=== PATIENT | male | born 1990 | race Caucasian/White ===

== ENCOUNTER 2023-10-17 05:36 | Emergency (ER) | payer BC, SELFPAY ==
[2023-10-17 05:41] VITALS: BP 168/111
[2023-10-17 05:49] VITALS: BP 160/102
--- NOTE | 2023-10-17 06:19 | ED.GENMED ---
History of Present Illness
General
Chief Complaint: Blood Pressure Problem
Source: patient
Time Seen by Provider: 10/17/23 06:00
History of Present Illness
History of Present Illness:
33-year-old male presents emergency room complaining of elevated blood pressure. Patient states over the past couple days has been feeling foggy and has had a headache. He denies any focal weakness numbness or tingling. Denies any chest pain or
shortness of breath. Patient has a history of hypertension for which he takes losartan 75 mg. Patient states he has been taking his medication. He does not carefully monitor his diet.
Phy Exam
Physical Exam
Physical Exam:
General: Awake, Alert, Oriented X3. No acute distress.
Vitals: unremarkable
Head: Atraumatic
Eyes: Pupils equal, EOMI
Throat: Airway intact, no exudates
Neck: Trachea midline
Lungs: Clear and equal b/l
Heart: Regular rate, no murmurs
Abd: Soft, Nontender, No pulsatile mass
Neuro: Nonfocal
Skin: Warm, dry, no rash
Extremities: pulses equal b/l, no edema
Course
Orders/Labs/Results
Orders:
Orders
10/17/23 06:18
Electrocardiogram (*1) Urgent
Reason for Study: Palpitations
Urinalysis Reflex To Culture Urgent
10/17/23 06:19
EKG- Treatment ONCE
10/17/23 06:23
Basic Metabolic Panel Urgent
10/17/23 06:29
Complete Blood Count/With Diff Urgent
10/17/23 07:20
Hydrochlorothiazide [[place]] 12.5 mg PO NOW ONE
Abnormal Lab Results
10/17/23 10/17/23
06:23 06:29
MPV 10.6 H fL
(7.4-10.4)
Monocytes % 9.6 H %
(1.7-9.3)
Glucose 108 H mg/dl
(70-99)
10/17/23 06:29
10/17/23 06:23
Vital Signs
Initial and Last Documented VS:
Initial Vital Signs
Temp Pulse Resp BP Pulse Ox
98.2 F 78 20 168/111 99
10/17/23 05:41 10/17/23 05:41 10/17/23 05:41 10/17/23 05:41 10/17/23 05:41
Last Documented Vital Signs
Temp Pulse Resp BP Pulse Ox
98.2 F 78 20 154/104 99
10/17/23 05:41 10/17/23 05:41 10/17/23 05:41 10/17/23 07:14 10/17/23 05:41
MDM/Problems Addressed
Differential Diagnosis Includes:
Uncontrolled hypertension, renal insufficiency,
MDM/Problems Addressed:
Patient presents with elevated blood pressure. He is somewhat symptomatic but has a nonfocal neuroexam and appears comfortable. Blood pressure monitored here in the emergency room and it is in the 150s to 160 range primarily. Labs are
unremarkable. Patient stable for discharge we will start him on hydrochlorothiazide.
*Pulse Oximetry
Patient hypoxic: no
*EKG
Interpreted by ED Provider?: Yes
Interpretation: normal
Heart Rate: 75
Rhythm: sinus
[place]: normal axis
Interval: normal interval
QRS Pattern: normal QRS
Ischemia: no ischemia
*Web Worker Interpretation
Rate: normal
Interpretation: normal
Rhythm: sinus
*Critical Care Note
Total Time (30-74mins, 75-104mins- exclusive of procedures): Not Applicable
ED Attending Note
-
Portions of this chart may have been created with voice recognition software.� Occasional wrong word or��sound alike� substitutions may have occurred due to the inherent limitations of voice recognition software.
Discharge Plan
Departure
Patient Disposition: Home (Routine Discharge)
Date of Disposition: 10/17/23
Time of Disposition: 07:20
Patient with high blood pressure during this ER visit?: Yes
Condition: Good
Discharge Problem:
Hypertension
Instructions: High Blood Pressure (DC)
Prescriptions:
New
hydrochlorothiazide 12.5 mg tablet
12.5 mg PO DAILY Qty: 30 0RF
No Action
losartan
75 mg PO DAILY
Referrals:
Nathan Burgess DO [Family Provider] -
Interventions
Interventions:
*Risk Screen - Suicide Last Done: 10/17/23 05:41
*General Assessment Last Done: 10/17/23 05:41
*Neglect/Abuse Screening Last Done: 10/17/23 05:41
ED- Fall Risk Assessment Last Done: 10/17/23 05:41
*ED COVID-19 Vaccine History Last Done: 10/17/23 05:41
ED- Cardiac Assessment Last Done: 10/17/23 07:13
ED- Neurological Assessment Last Done: 10/17/23 07:13
ED- Pulmonary Assessment Last Done: 10/17/23 07:13
Discharge Date and Time
Print Language: POLISH
[2023-10-17 06:22] VITALS: BMI 38.8
[2023-10-17 06:51] LABS: % Basophils 0.6 % (0-2); % Eosinophils 2.1 % (0-6); % Immature Granulocytes 0.2 % (0-0.5); % Monocytes 9.6 % (1.7-9.3); % Neutrophils 56.5 % (42.2-75.2); Absolute Eosinophils 0.1 10^3/uL (0-0.7); Absolute Lymphocytes 1.5 10^3/uL (1.2-3.4); Absolute Monocytes 0.5 10^3/uL (0.1-0.6); Absolute Neutrophils 2.7 10^3/uL (1.4-6.5); Hematocrit 43.8 % (39.0-52.0); Hemoglobin 15.4 g/dL (13.0-18.0); Mean Corp Hgb Conc. 35.2 g/dL (33.0-37.0); Mean Corpuscular Hgb 30.5 pg (27.0-31.0); Mean Corpuscular Volume 86.7 fL (80.0-94.0); Mean Platelet Volume 10.6 fL (7.4-10.4); Nucleated Red Blood Cells % 0 % (-); Platelet Count 196 10^3/uL (130-400); Red Blood Cell Count 5.05 10^6/uL (4.70-6.10); White Blood Cell Count 4.8 10^3/uL (4.8-10.8)
[2023-10-17 06:59] LABS: Blood Urea Nitrogen 18 mg/dl (9-20); Calcium 9.5 mg/dl (8.4-10.2); Carbon Dioxide 28 mmol/L (22-30); Chloride 103 mmol/L (98-107); Estimated Creatinine Clearance > 125 ml/min; Glucose 108 mg/dl (70-99); Potassium 4.5 mmol/L (3.5-5.1); Sodium 136 mmol/L (135-145); eGFR > 60.00
[2023-10-17 07:14] VITALS: BP 154/104
[2023-10-17] MEDS: ORETIC 12.5 MG PO (07:49)
== END 2023-10-17 07:50 | disposition home or self-care (01) ==
LOC: EMR 05:36
PROVIDERS: EMERGENCY PHYSICIAN Emergency Medicine; FAMILY PHYSICIAN Family Medicine
DX: I10 Essential (primary) hypertension (principal); R51.9 Headache, unspecified
CPT/HCPCS: 99283; 80048; 85025; 93005

== ENCOUNTER 2024-04-02 03:25 | Emergency (ER) | payer BC, SELFPAY ==
[2024-04-02 03:46] VITALS: BP 185/125
[2024-04-02 04:38] LABS: % Basophils 0.6 % (0-2); % Eosinophils 2.7 % (0-6); % Immature Granulocytes 0.4 % (0-0.5); % Lymphocytes 27.7 % (20.5-51.1); % Monocytes 7.2 % (1.7-9.3); % Neutrophils 61.4 % (42.2-75.2); Absolute Eosinophils 0.2 10^3/uL (0-0.7); Absolute Monocytes 0.5 10^3/uL (0.1-0.6); Absolute Neutrophils 4.4 10^3/uL (1.4-6.5); Hematocrit 44.6 % (39.0-52.0); Hemoglobin 15.3 g/dL (13.0-18.0); Mean Corp Hgb Conc. 34.3 g/dL (33.0-37.0); Mean Corpuscular Hgb 29.4 pg (27.0-31.0); Mean Corpuscular Volume 85.8 fL (80.0-94.0); Mean Platelet Volume 10.2 fL (7.4-10.4); Nucleated Red Blood Cells % 0 % (-); Platelet Count 239 10^3/uL (130-400); Red Cell Dist. Width 12.3 % (11.5-14.5); White Blood Cell Count 7.1 10^3/uL (4.8-10.8)
[2024-04-02 04:39] LABS: Urine Albumin Trace (Neg - Trace); Urine Bilirubin Negative (Negative); Urine Character Slightly Cloudy (Clear); Urine Color Yellow; Urine Glucose Negative (Negative); Urine Ketone Negative (Negative); Urine Leukocyte Negative (Negative); Urine Nitrite Negative (Negative); Urine Occult Blood 4+ (Negative); Urine Urobilinogen Negative (Neg - 1+)
[2024-04-02 04:58] LABS: ALT (SGPT) 71 U/L (0-50); AST (SGOT) 38 U/L (17-59); Albumin 4.5 g/dl (3.5-5.0); Alkaline Phosphatase 71 U/L (38-126); Blood Urea Nitrogen 15 mg/dl (9-20); Calcium 9.3 mg/dl (8.4-10.2); Carbon Dioxide 24 mmol/L (22-30); Chloride 105 mmol/L (98-107); Glucose 133 mg/dl (70-99); Potassium 4.3 mmol/L (3.5-5.1); Sodium 140 mmol/L (135-145); Total Bilirubin 0.5 mg/dl (0.2-1.3); Total Protein 7.1 g/dl (6.3-8.2); eGFR > 60.00
[2024-04-02 05:16] LABS: Urine Mucus Many
[2024-04-02 05:17] LABS: Urine Amorphous Seen; Urine Bacteria Many (Negative); Urine Red Blood Cell >100 /HPF (0-2); Urine Squamous Cell >30 /LPF (Few)
[2024-04-02 08:00] VITALS: BP 156/108
--- NOTE | 2024-04-02 08:13 | ED.GENMED ---
History of Present Illness
General
Chief Complaint: Flank Pain
Source: patient
Exam Limitations: none
Time Seen by Provider: 04/02/24 07:57
History of Present Illness
History of Present Illness:
33-year-old male presents with intermittent left flank pain starting 4 to 5 days ago. He did vomit at the onset of his pain. Sharp in nature. No associated urinary symptoms. The pain increased last evening and he presented here. No fevers. No
other complaints at this time
Phy Exam
Physical Exam
Physical Exam:
General: Well-appearing male no acute respiratory distress
HEENT: Normocephalic atraumatic
Heart: Regular rate and rhythm no murmurs
Lungs: Clear no wheeze
Abdomen is soft mildly tender to the left costovertebral angle. No guarding rebound normal bowel sounds
Extremities: No cyanosis
Course
Orders/Labs/Results
Orders:
Orders
04/02/24 04:24
Complete Blood Count/With Diff Urgent
Comprehensive Metabolic Panel Urgent
Urinalysis Reflex To Culture Urgent
Date Specimen was Collected: 04/02/24
Time Specimen was Collected: 03:49
Urine Microscopic Reflex Cult Urgent
Urine Culture Urgent
CHAO Source: U
Specimen Description:
Date Specimen was Collected: 04/02/24
Time Specimen was Collected: 03:49
04/02/24 05:31
CT Abd/pel Without Iv Or Oral Urgent
Comment:
Reason For Exam: L flank pain, hx kidney stone
Abnormal Lab Results
04/02/24
04:24
Glucose 133 H mg/dl
(70-99)
ALT 71 H U/L
(0-50)
Ur Occult Blood Reflex 4+ A
(Negative)
Urine RBC >100 A /HPF
(0-2)
Urine Bacteria (Reflex) Many A
(Negative)
04/02/24 04:24
04/02/24 04:24
Vital Signs
Initial and Last Documented VS:
Initial Vital Signs
Temp Pulse Resp BP Pulse Ox
98.2 F 71 16 185/125 99
04/02/24 03:46 04/02/24 03:46 04/02/24 03:46 04/02/24 03:46 04/02/24 03:46
Last Documented Vital Signs
Temp Pulse Resp BP Pulse Ox
98.2 F 76 20 156/108 97
04/02/24 03:46 04/02/24 08:00 04/02/24 08:00 04/02/24 08:00 04/02/24 08:00
MDM/Problems Addressed
Differential Diagnosis Includes:
Left flank pain. Consider renal colic versus constipation versus musculoskeletal flank pain
Workup was initiated while he was waiting to be seen including a CT of the abdomen pelvis was demonstrates a 4 mm distal ureteral stone at the UVJ. Urinalysis with hematuria some bacteria but no pyuria. Patient appears very comfortable notes the
pain is a 1 out of 10 at this time. Offered fluids Toradol and other symptomatic treatment however he declined at this time. Recommended hydration at home will prescribe Zofran Flomax and pain medicine if needed. Return precautions were given.
Of note there is a 4.5 cm lesion in the right hepatic lobe that was seen on the CT scan. Patient was made aware of these findings and a CAT scan report was printed for their review and follow-up
*Critical Care Note
Total Time (30-74mins, 75-104mins- exclusive of procedures): Not Applicable
ED Attending Note
-
Portions of this chart may have been created with voice recognition software.� Occasional wrong word or��sound alike� substitutions may have occurred due to the inherent limitations of voice recognition software.
Discharge Plan
Departure
Patient Disposition: Home (Routine Discharge)
Date of Disposition: 04/02/24
Time of Disposition: 08:16
Patient with high blood pressure during this ER visit?: No
Discharge Problem:
Calculus, ureteral
Instructions: Kidney Stones (DC)
Prescriptions:
New
tamsulosin [Flomax] 0.4 mg capsule
0.4 mg PO DAILY Qty: 14 0RF
ondansetron 4 mg tablet,disintegrating
4 mg PO Q8H PRN (Reason: nausea and vomiting) Qty: 10 0RF
hydrocodone-acetaminophen 5-325 mg tablet
1 tab PO Q8H PRN (Reason: Pain) Qty: 10 0RF
No Action
losartan
75 mg PO DAILY
hydrochlorothiazide 12.5 mg tablet
12.5 mg PO DAILY Qty: 30 0RF
Referrals:
Sebastian Balderas MD [Active] -
Nathan Burgess DO [Family Provider] -
Activity Restrictions/Additional Instructions:
Drink plenty fluids. Use Motrin as needed for pain. Take Flomax as prescribed and Zofran if needed for nausea. A stronger pain medicine was prescribed in the event you have severe pain. Please return here if you develop a fever vomiting
increased pain or other concerning finding. Follow-up with urology otherwise.
Interventions
Interventions:
*General Assessment Last Done: 04/02/24 03:46
*Neglect/Abuse Screening Last Done: 04/02/24 03:46
*ED COVID-19 Vaccine History Last Done: 04/02/24 08:00
IF-Yzhnow-Hzwfgquztj Assessment Last Done: 04/02/24 08:00
ED-Male Genitourinary Assessment Last Done: 04/02/24 08:00
Discharge Date and Time
Print Language: [id number]
== END 2024-04-02 08:53 | disposition home or self-care (01) ==
LOC: EMR 03:25
PROVIDERS: Emergency Medicine; EMERGENCY PHYSICIAN Emergency Medicine; FAMILY PHYSICIAN Family Medicine
DX: N13.2 Hydronephrosis with renal and ureteral calculous obstruction (principal)
CPT/HCPCS: 99284; 74176; 80053; 81003; 81015; 85025; 87086

== ENCOUNTER → 2024-05-14 08:10 | Outpatient (REF) | payer BC, SELFPAY ==
[2024-05-14 12:12] LABS: % Basophils 0.8 % (0-2); % Eosinophils 2.5 % (0-6); % Immature Granulocytes 0.3 % (0-0.5); % Monocytes 8.2 % (1.7-9.3); % Neutrophils 52.2 % (42.2-75.2); Absolute Basophils 0.1 10^3/uL (0-0.2); Absolute Eosinophils 0.2 10^3/uL (0-0.7); Absolute Lymphocytes 2.3 10^3/uL (1.2-3.4); Absolute Monocytes 0.5 10^3/uL (0.1-0.6); Absolute Neutrophils 3.3 10^3/uL (1.4-6.5); Hematocrit 45.6 % (39.0-52.0); Hemoglobin 15.7 g/dL (13.0-18.0); Mean Corp Hgb Conc. 34.4 g/dL (33.0-37.0); Mean Corpuscular Hgb 29.7 pg (27.0-31.0); Mean Corpuscular Volume 86.4 fL (80.0-94.0); Mean Platelet Volume 10.8 fL (7.4-10.4); Nucleated Red Blood Cells % 0 % (-); Platelet Count 226 10^3/uL (130-400); Red Blood Cell Count 5.28 10^6/uL (4.70-6.10); Red Cell Dist. Width 12.7 % (11.5-14.5); White Blood Cell Count 6.3 10^3/uL (4.8-10.8)
[2024-05-14 12:40] LABS: ALT (SGPT) 112 U/L (0-50); AST (SGOT) 44 U/L (17-59); Albumin 4.8 g/dl (3.5-5.0); Alkaline Phosphatase 79 U/L (38-126); Blood Urea Nitrogen 22 mg/dl (9-20); Calcium 9.5 mg/dl (8.4-10.2); Carbon Dioxide 28 mmol/L (22-30); Chloride 102 mmol/L (98-107); Glucose 103 mg/dl (70-99); HDL Cholesterol 56 mg/dl; LDL Cholesterol, Calculated 95 mg/dl; Potassium 4.3 mmol/L (3.5-5.1); Sodium 138 mmol/L (135-145); Total Bilirubin 0.6 mg/dl (0.2-1.3); Total Cholesterol 174 mg/dl (50-199); Total Protein 7.2 g/dl (6.3-8.2); Triglyceride 119 mg/dl (10-149); Very Low Density Lipoprotein 23 mg/dl (0-30); eGFR > 60.00
[2024-05-14 13:10] LABS: TSH 1.41 uIU/ml (0.47-4.68)
[2024-05-14 13:27] LABS: Glycohemoglobin (HgbA1c) 5.5 % (4.0-5.6)
== END ==
LOC: HWLAB 08:10
PROVIDERS: ATTENDING PHYSICIAN Radiology Diagnostic Radiology; FAMILY PHYSICIAN Family Medicine
DX: Z13.5 Encounter for screening for eye and ear disorders (principal); K76.0 Fatty (change of) liver, not elsewhere classified; R73.9 Hyperglycemia, unspecified
CPT/HCPCS: 36415; 70030; 80053; 80061; 83036; 84443; 85025

== ENCOUNTER → 2024-06-02 17:22 | Outpatient (REF) | payer BC, SELFPAY | LOC: MRI 3T 17:22 | PROVIDERS: ATTENDING PHYSICIAN Family Medicine | DX: K76.9 Liver disease, unspecified (principal) | CPT/HCPCS: 74183; A9575 ==